=== PATIENT | female | born 1965 | race Caucasian/White ===

== ENCOUNTER 2019-03-16 11:03 | Day surgery (SDC) | payer OTHER ==
[2019-03-16] MEDS ORDERED: Depo-Medrol 40 MG/ML IM ONE (11:04)
[2019-03-16] MEDS ORDERED: Marcaine 0.5% SDV 10 ML IJ ONE (11:04)
[2019-03-16] MEDS ORDERED: VERSED 5 MG/5 ML ONE (11:53)
[2019-03-16] MEDS ORDERED: Ketamine HCl 50 MG/ML ONE (12:01)
[2019-03-16] MEDS ORDERED: DIPRIVAN 200 MG/20 ML IV ONE (12:01)
[2019-03-16] MEDS ORDERED: Lactated Ringers 1,000 ML IV ONE (13:11)
--- NOTE | 2019-03-16 13:27 | XRAY ---
Indication: Right greater trochanter injection. Intraoperative fluoroscopy was provided for 10 seconds. Single digital spot image submitted for interpretation demonstrate needle tip adjacent to the right greater trochanter. Small amount of contrast injected for needle tip placement. Correlate with intraoperative findings/report.
--- NOTE | 2019-03-16 13:27 | XRAY ---
Indication: Left greater trochanter injection. Intraoperative fluoroscopy was provided for 8 seconds. Single digital spot image submitted for interpretation demonstrate needle tip adjacent to the left greater trochanter. Small amount of contrast injected for needle tip placement. Correlate with intraoperative findings/report.
--- NOTE | 2019-03-16 13:43 | XRAY ---
8 seconds fluoroscopy time in surgery for left greater trochanter injection.
--- NOTE | 2019-03-16 13:53 | XRAY ---
10 seconds fluoroscopy time in surgery for right greater trochanter injection.
== END 2019-03-16 12:30 | disposition home or self-care (01) ==
LOC: SDC-PAIN 11:03
PROVIDERS: ATTEND Psychiatry & Neurology Pain Medicine
DX: M70.62 Trochanteric bursitis, left hip (principal); M70.61 Trochanteric bursitis, right hip; J44.9 Chronic obstructive pulmonary disease, unspecified; I10 Essential (primary) hypertension; F41.8 Other specified anxiety disorders; G47.30 Sleep apnea, unspecified; Z79.899 Other long term (current) drug therapy
CPT/HCPCS: 20610; 73501; 77002; J1030; J2250; J2704; Q9966

== ENCOUNTER 2019-08-17 09:33 | Day surgery (SDC) | payer OTHER ==
[2019-08-17] MEDS ORDERED: Depo-Medrol 40 MG/ML IM ONE (09:34)
[2019-08-17] MEDS ORDERED: Marcaine 0.5% SDV 10 ML IJ ONE (09:34)
[2019-08-17] MEDS ORDERED: DIPRIVAN 200 MG/20 ML IV ONE (11:41)
[2019-08-17] MEDS ORDERED: Ketamine HCl 50 MG/ML ONE (11:41)
--- NOTE | 2019-08-17 12:46 | XRAY ---
Indication: Right hip injection. Intraoperative fluoroscopy was provided for 13 seconds. Single digital spot image submitted for interpretation demonstrates needle tip immediately lateral to the right greater trochanter. Small amount of contrast injected for needle tip placement. Correlate with intraoperative findings/report.
--- NOTE | 2019-08-17 12:48 | XRAY ---
Indication: Left hip injection. Intraoperative fluoroscopy was provided for 9 seconds. Single digital spot image submitted for interpretation demonstrates needle tip immediately lateral to the left greater trochanter. Small amount of contrast injected for needle tip placement. Correlate with intraoperative findings/report.
--- NOTE | 2019-08-17 13:49 | XRAY ---
9 seconds fluoroscopy time in surgery for left hip injection of the greater trochanter.
--- NOTE | 2019-08-17 13:49 | XRAY ---
13 seconds fluoroscopy time in surgery for right hip injection of the greater trochanter.
[2019-08-17] MEDS ORDERED: Lactated Ringers 1,000 ML IV ONE (15:57)
== END 2019-08-17 12:10 | disposition home or self-care (01) ==
LOC: SDC-PAIN 09:33
PROVIDERS: ATTEND Psychiatry & Neurology Pain Medicine
DX: M70.62 Trochanteric bursitis, left hip (principal); M70.61 Trochanteric bursitis, right hip; I10 Essential (primary) hypertension; J44.9 Chronic obstructive pulmonary disease, unspecified; F41.8 Other specified anxiety disorders; G47.30 Sleep apnea, unspecified; Z79.899 Other long term (current) drug therapy
CPT/HCPCS: 20610; 73501; 77002; J1030; J2704; Q9966